=== PATIENT | female | born 1960 | race African-American/Black ===

== ENCOUNTER → 2018-11-25 | Day surgery (SDC) | payer OTHER ==
--- NOTE | 2018-11-30 09:04 | PATH ---
Cytology Non-Gynecological Report Patient Name: JAY HOLLAND [facility]. Rec. #: [id number] /Age/Gender: 1960 (Age: 58) / F Account: [id number] Location: RADIOLOGY INTER Taken: 11/25/2018 Received: 11/26/2018 Reported: 11/30/2018 Physicians: Gutierrez Lopez M.D. Specimen(s) Received LEFT LOBE THYROID FNA Clinical History Left thyroid nodule Final Diagnosis THYROID, LEFT, FINE NEEDLE ASPIRATION: SATISFACTORY FOR EVALUATION. [place] CLASS II: BENIGN SMALL FOLLICULAR CELLS, MANY MACROPHAGES, AND ABUNDANT COLLOID PRESENT, CONSISTENT WITH A BENIGN FOLLICULAR NODULE. Electronically Signed Anila Romero M.D. Gross Description Received are eight direct smears, four of which are air-dried and Diff-Quik stained, and four of which are alcohol fixed and Pap stained. Also received is 30 ml of bloody formalin from which one cellblock is prepared.
== END | disposition home or self-care (01) ==
LOC: JRADIR 09:43
PROVIDERS: ATTEND Internal Medicine Endocrinology, Diabetes & Metabolism
PROC: 0G9K3ZX Drainage of Thyroid Gland, Percutaneous Approach, Diagnostic (ICD-10-PCS; principal; 2018-11-25)
DX: E04.1 Nontoxic single thyroid nodule (principal)
CPT/HCPCS: 76942; 88173; 88305-TC